=== PATIENT | male | born 1995 | race Caucasian/White ===

== ENCOUNTER 2020-06-22 11:33 | Emergency (ER) | payer OTHER, MEDICAID ==
[~2020-06-22] VITALS: Ht 180.3 cm; Wt 87.8 kg
[2020-06-22] MEDS ORDERED: BUTACAP78 PO (11:46)
[2020-06-22 12:28] LABS: BASO % 0.2 % (0.0-1.0); EOS # 0.1 10^3/uL (0.0-0.5); EOS % 1.9 % (0.0-3.0); HEMATOCRIT 45.4 % (42.0-52.0); HEMOGLOBIN 15.1 g/dl (13.5-17.5); LYMPH # 2.3 10^3/uL (1.5-5.0); LYMPH % 49.1 % (24.0-44.0); MEAN CORPUSCULAR HEMOGLOBIN 28.7 pg (27.0-33.0); MEAN CORPUSCULAR HGB CONC 33.3 g/dl (32.0-36.5); MEAN CORPUSCULAR VOLUME 86.3 fl (80.0-96.0); MONO # 0.5 10^3/uL (0.0-0.8); MONO % 9.6 % (0.0-5.0); NEUTROPHILS # 1.8 10^3/uL (1.5-8.5); NEUTROPHILS % 39.2 % (36.0-66.0); PLATELET COUNT, AUTOMATED 222 10^3/uL (150-450); RED BLOOD COUNT 5.26 10^6/uL (4.30-6.10); WHITE BLOOD COUNT 4.7 10^3/uL (4.0-10.0)
--- NOTE | 2020-06-22 12:47 | REP ---
INDICATION: pain with urination, ejaculation, around testicles COMPARISON: None. TECHNIQUE: Nolen scale and color Doppler evaluation using linear and curved array transducer with color Doppler evaluation. FINDINGS: With the exception of a 9 mm septated relatively benign appearing left epididymal head cyst, the testicles and epididymi are normal in contour, size, echogenicity, and vascularity. There is no evidence for intratesticular mass lesion, acute infectious/inflammatory process, or torsion. No obvious hydroceles or varicoceles are identified. Right testicle measures 5.1 x 2.3 x 3.0 cm. Left testicle measures 4.6 x 2.2 x 2.9 cm. IMPRESSION: Essentially normal scrotal ultrasound. <Electronically signed by Jonny Hernandez > 06/22/20 [id number]
[2020-06-22 13:02] LABS: ALBUMIN 4.4 GM/DL (3.2-5.2); ALT/SGPT 27 U/L (12-78); BILIRUBIN,DIRECT 0.1 MG/DL (0.0-0.2); BILIRUBIN,TOTAL 0.6 MG/DL (0.2-1.0); BLOOD UREA NITROGEN 15 MG/DL (7-18); CALCIUM LEVEL 9.1 MG/DL (8.5-10.1); CARBON DIOXIDE LEVEL 30 MEQ/L (21-32); CHLORIDE LEVEL 105 MEQ/L (98-107); CREATININE FOR GFR 0.98 MG/DL (0.70-1.30); GLOMERULAR FILTRATION RATE > 60.0 (>60); GLUCOSE, FASTING 81 MG/DL (70-100); SODIUM LEVEL 140 MEQ/L (136-145); TOTAL PROTEIN 7.5 GM/DL (6.4-8.2)
[2020-06-22 13:33] LABS: CHLAMYDIA DNA AMPLIFICATION NEGATIVE (NEGATIVE); GC DNA AMPLIFICATION NEGATIVE (NEGATIVE)
[2020-06-22] MEDS ORDERED: ISOVUE-370 76% 100ML VIAL As Ordered ONE (13:43)
--- NOTE | 2020-06-22 14:04 | REP ---
INDICATION: chr dysuria, rectal pain "prostate" x2 mos, fmh bladder ston. COMPARISON: None. TECHNIQUE: Axial contrast images through the pelvis with coronal and sagittal reformations using 100 cc Isovue 370 intravenous contrast material. Coronal and sagittal reformations obtained. FINDINGS: Visualized portions of the small and large bowel are grossly unremarkable. Incidental sigmoid diverticula noted without evidence for acute diverticulitis. Bladder is unremarkable and without wall thickening, mass, or bladder stones. 2-3 mm rounded calcifications in the deep left hemipelvis likely represent phlebolith. Prostate and seminal vesicles appear normal. No pelvic free fluid. No obvious adenopathy. Abdominal aorta and vasculature appear normal. Surrounding musculoskeletal structures are intact. IMPRESSION: Essentially normal pelvic ultrasound. <Electronically signed by Jonny Hernandez > 06/22/20 [id number]
[2020-06-22 14:30] VITALS: BP 130/78
== END 2020-06-22 14:33 | disposition home or self-care (01) ==
LOC: M ED 11:33
DX: R31.9 Hematuria, unspecified (principal); K62.89 Other specified diseases of anus and rectum
CPT/HCPCS: 36415; 72193; 76870; 80048; 80076; 81001; 85025; 87661; 93976; 99284; Q9967

== ENCOUNTER → 2020-06-27 | Outpatient (REF) | payer OTHER, MEDICAID ==
[~2020-06-27] MED LIST: BUTACAP78 PO
[2020-06-27 14:07] LABS: APPEARANCE, URINE CLEAR (CLEAR); BACTERIA, URINE AUTO NEGATIVE (NEGATIVE); BILIRUBIN, URINE AUTO NEGATIVE (NEGATIVE); BLOOD, URINE BLOOD NEGATIVE (NEGATIVE); COLOR, URINE STRAW (YELLOW); GLUCOSE, URINE (UA) AUTO NEGATIVE (NEGATIVE); KETONE, URINE AUTO NEGATIVE (NEGATIVE); LEUKOCYTE ESTERASE, URINE AUTO NEGATIVE (NEGATIVE); NITRITE, URINE AUTO NEGATIVE (NEGATIVE); PROTEIN, URINE AUTO NEGATIVE (NEGATIVE); RBC, URINE AUTO 0 /HPF (0-3); SPECIFIC GRAVITY URINE AUTO 1.005 (1.002-1.035); SQUAMOUS EPITHELIAL CELL UR AU 0 /HPF (0-6); UROBILINOGEN, URINE AUTO 0.2 mg/dL (0.0-2.0); WBC, URINE AUTO 0 /HPF (0-3)
== END ==
LOC: M SMT 12:40
PROVIDERS: ATTEND Urology
DX: N41.1 Chronic prostatitis (principal)

== ENCOUNTER → 2020-07-21 | Outpatient (REF) | payer OTHER, MEDICAID ==
[2020-07-21 18:48] LABS: APPEARANCE, URINE CLEAR (CLEAR); BACTERIA, URINE AUTO NEGATIVE (NEGATIVE); BILIRUBIN, URINE AUTO NEGATIVE (NEGATIVE); BLOOD, URINE BLOOD NEGATIVE (NEGATIVE); COLOR, URINE STRAW (YELLOW); GLUCOSE, URINE (UA) AUTO NEGATIVE (NEGATIVE); KETONE, URINE AUTO NEGATIVE (NEGATIVE); LEUKOCYTE ESTERASE, URINE AUTO NEGATIVE (NEGATIVE); MUCUS, URINE SMALL (NEGATIVE); NITRITE, URINE AUTO NEGATIVE (NEGATIVE); PROTEIN, URINE AUTO NEGATIVE (NEGATIVE); RBC, URINE AUTO 0 /HPF (0-3); SPECIFIC GRAVITY URINE AUTO 1.004 (1.002-1.035); SQUAMOUS EPITHELIAL CELL UR AU 0 /HPF (0-6); UROBILINOGEN, URINE AUTO 0.2 mg/dL (0.0-2.0); WBC, URINE AUTO 0 /HPF (0-3)
[2020-07-21 20:42] LABS: CHLAMYDIA DNA AMPLIFICATION NEGATIVE (NEGATIVE); GC DNA AMPLIFICATION NEGATIVE (NEGATIVE)
== END ==
LOC: M LABSMT 12:57 → M SFHCADAM 13:11
PROVIDERS: ATTEND Nurse Practitioner Family
DX: N41.1 Chronic prostatitis (principal)

== ENCOUNTER → 2020-08-08 | Outpatient (REF) | payer OTHER, MEDICAID | LOC: M SMT 09:14 | PROVIDERS: ATTEND Urology | DX: N41.1 Chronic prostatitis (principal) ==

== ENCOUNTER → 2021-01-21 | Outpatient (REF) | payer OTHER, MEDICAID ==
[2021-01-21 13:41] LABS: APPEARANCE, URINE CLEAR (CLEAR); BACTERIA, URINE AUTO NEGATIVE (NEGATIVE); BILIRUBIN, URINE AUTO NEGATIVE (NEGATIVE); BLOOD, URINE BLOOD NEGATIVE (NEGATIVE); COLOR, URINE YELLOW (YELLOW); GLUCOSE, URINE (UA) AUTO NEGATIVE (NEGATIVE); KETONE, URINE AUTO TRACE mg/dL (NEGATIVE); LEUKOCYTE ESTERASE, URINE AUTO NEGATIVE (NEGATIVE); NITRITE, URINE AUTO NEGATIVE (NEGATIVE); PROTEIN, URINE AUTO NEGATIVE (NEGATIVE); RBC, URINE AUTO 0 /HPF (0-3); SQUAMOUS EPITHELIAL CELL UR AU 0 /HPF (0-6); UROBILINOGEN, URINE AUTO 0.2 mg/dL (0.0-2.0); WBC, URINE AUTO 0 /HPF (0-3)
== END ==
LOC: M SMT 09:27
PROVIDERS: ATTEND Urology
DX: N41.1 Chronic prostatitis (principal)

== ENCOUNTER → 2021-04-28 | Outpatient (REF) | payer OTHER, MEDICAID ==
[2021-04-28 13:49] LABS: APPEARANCE, URINE CLEAR (CLEAR); BACTERIA, URINE AUTO NEGATIVE (NEGATIVE); BILIRUBIN, URINE AUTO NEGATIVE (NEGATIVE); BLOOD, URINE BLOOD NEGATIVE (NEGATIVE); COLOR, URINE COLORLESS (YELLOW); GLUCOSE, URINE (UA) AUTO NEGATIVE (NEGATIVE); KETONE, URINE AUTO NEGATIVE (NEGATIVE); LEUKOCYTE ESTERASE, URINE AUTO NEGATIVE (NEGATIVE); NITRITE, URINE AUTO NEGATIVE (NEGATIVE); PROTEIN, URINE AUTO NEGATIVE (NEGATIVE); RBC, URINE AUTO 0 /HPF (0-3); SPECIFIC GRAVITY URINE AUTO 1.004 (1.002-1.035); SQUAMOUS EPITHELIAL CELL UR AU 0 /HPF (0-6); UROBILINOGEN, URINE AUTO 0.2 mg/dL (0.0-2.0); WBC, URINE AUTO 0 /HPF (0-3)
== END ==
LOC: M SMT 13:25
PROVIDERS: ATTEND Urology
DX: N41.1 Chronic prostatitis (principal)

== ENCOUNTER → 2021-09-18 | Outpatient (REF) | payer OTHER, MEDICAID | LOC: M SMT 10:35 | PROVIDERS: ATTEND Urology | DX: N41.1 Chronic prostatitis (principal) ==

== ENCOUNTER → 2022-01-04 | Outpatient (REF) | payer MEDICAID, OTHER | LOC: M SMT 12:17 | PROVIDERS: ATTEND Urology | DX: N41.1 Chronic prostatitis (principal) ==